=== PATIENT | female | born 1960 | race Caucasian/White ===

== ENCOUNTER 2016-10-30 01:22 | Emergency (ER) | payer MEDICAID ==
[~2016-10-30] VITALS: Ht 157.5 cm; Wt 123.0 kg
[2016-10-30 01:31] VITALS: BP 156/75
== END 2016-10-30 03:43 | disposition home or self-care (01) ==
LOC: ER 01:33
DX: B86 Scabies (principal); L50.8 Other urticaria; E11.9 Type 2 diabetes mellitus without complications
CPT/HCPCS: 99283

== ENCOUNTER 2024-10-08 12:07 | Emergency (ER) | payer SELFPAY ==
[~2024-10-08] VITALS: Ht 157.5 cm; Wt 72.0 kg
[2024-10-08 12:17] VITALS: BP 147/88; TEMP 36.6; O2SAT 98
[2024-10-08 12:19] VITALS: PULSE 94; RESP 16; O2SAT 99
[2024-10-08] MEDS ORDERED: TOPUD PO (18:06)
[2024-10-08] MEDS ORDERED: IBUP-2029 PO (18:06)
== END 2024-10-08 19:03 | disposition home or self-care (01) ==
LOC: ER 12:07
DX: M25.561 Pain in right knee (principal); E11.9 Type 2 diabetes mellitus without complications; R51.9 Headache, unspecified; Z79.899 Other long term (current) drug therapy
CPT/HCPCS: 73552; 73560; 73590; 99284